=== PATIENT | male | born 1960 | race Caucasian/White ===

== ENCOUNTER → 2024-01-28 14:06 | Outpatient (BNVA) | payer SELFPAY | PROVIDERS: PCP Family Medicine; Visit Provider Podiatrist Foot & Ankle Surgery | DX: S92.014A Nondisplaced fracture of body of right calcaneus, initial encounter for closed fracture; W17.89XA Other fall from one level to another, initial encounter | CPT/HCPCS: 73650 ==

== ENCOUNTER → 2024-02-10 12:55 | Outpatient (BNVA) | payer SELFPAY | PROVIDERS: PCP Family Medicine; Visit Provider Podiatrist Foot & Ankle Surgery | DX: S92.001D Unspecified fracture of right calcaneus, subsequent encounter for fracture with routine healing; W19.XXXD Unspecified fall, subsequent encounter | CPT/HCPCS: 73650 ==

== ENCOUNTER → 2024-03-07 15:12 | Outpatient (BNVA) | payer SELFPAY | PROVIDERS: PCP Family Medicine; Visit Provider Podiatrist Foot & Ankle Surgery | DX: S92.014D Nondisplaced fracture of body of right calcaneus, subsequent encounter for fracture with routine healing; W17.89XD Other fall from one level to another, subsequent encounter; M79.671 Pain in right foot | CPT/HCPCS: 73650 ==